=== PATIENT | female | born 1935 | race Caucasian/White ===

== ENCOUNTER 2018-01-09 01:15 | Emergency (ER) | payer MEDICARE, OTHER, MEDICAID ==
[2018-01-09 01:34] VITALS: BP 138/75
--- NOTE | 2018-01-09 02:26 | EDM.PDOC ---
ED HPI GENERAL MEDICAL PROBLEM - General Chief Complaint: General Stated Complaint: knee pain Time Seen by Provider: 01/09/18 01:35 Source of Information: Reports: Patient, EMS, RN History Limitations: Reports: No Limitations - History of Present Illness INITIAL COMMENTS - FREE TEXT/NARRATIVE: Fell out of lift chair at approximately 2300 and was brought to the ER approximately 0115 to be evaluated for left leg pain. She complains of pain to the left knee and ankle. No obvious deformity. She has had previous stroke and is weak on the left side. She denies any other injury or pain. No LOC noted. Onset: Sudden Location: Reports: Lower Extremity, Left Quality: Reports: Throbbing Severity: Moderate Associated Symptoms: Reports: No Other Symptoms Left Ankle Pain Score (Numeric/FACES): 5 - Related Data Allergies Allergy/AdvReac Type Severity Reaction Status Date / Time cephalexin Allergy Cannot Verified 01/09/18 00:47 Remember tramadol Allergy Cannot Verified 01/09/18 00:47 Remember Home Meds: Home Meds Aspirin [Halfprin] 81 mg PO DAILY 08/09/14 [History] Escitalopram [Lexapro] 10 mg PO DAILY 08/09/14 [History] Gabapentin 1 tab PO TID 08/09/14 [History] Hydrochlorothiazide 25 mg PO DAILY 08/09/14 [History] Insulin Detemir [Levemir] 7 units SUBCUT DAILY 08/09/14 [History] LORazepam 1 mg PO BEDTIME PRN 08/09/14 [History] Levothyroxine 75 mcg PO DAILY 08/09/14 [History] Melatonin/Pyridoxine HCl (B6) [Melatonin 5 mg Tablet] 3 mg PO BEDTIME 08/09/14 [ History] Multivit-Min/FA/Lycopene/Lut [Centrum Silver] 1 tab PO DAILY 08/09/14 [History] Polyethylene Glycol 3350 [MiraLAX] 1 gm PO DAILY 08/09/14 [History] Potassium Chloride [Klor-Con 10] 10 meq PO DAILY 08/09/14 [History] Sennosides/Docusate Sodium [Senna-Docusate Sodium] 2 tab PO BEDTIME 08/09/14 [ History] Solifenacin [Vesicare] 5 mg PO DAILY 08/09/14 [History] Verapamil HCl [Verapamil ER] 1 tab PO DAILY 08/09/14 [History] Vilazodone [Viibryd] 1 tab PO DAILY 08/09/14 [History] Cholecalciferol (Vitamin D3) [D3-2000] 2,000 unit PO DAILY 12/15/15 [History] diphenhydrAMINE [Benadryl] 50 mg PO BEDTIME PRN 12/15/15 [History] Clopidogrel [Plavix] 75 mg PO DAILY #30 tablet 12/22/15 [Rx] Lisinopril [Prinivil] 5 mg PO DAILY #30 tablet 12/22/15 [Rx] Past Medical History HEENT History: Reports: Cataract Cardiovascular History: Reports: Hypertension Musculoskeletal History: Reports: Fibromyalgia Neurological History: Reports: CVA, TIA Psychiatric History: Reports: Anxiety, Depression Endocrine/Metabolic History: Reports: Diabetes, Type II, Hypoparathyroidism, Hypothyroidism - Past Surgical History HEENT Surgical History: Reports: Adenoidectomy, Cataract Surgery GI Surgical History: Reports: Appendectomy, Cholecystectomy Female Surgical History: Reports: Hysterectomy Social & Family History - Family History Family Medical History: Noncontributory Cardiac: Reports: CAD, Hypertension Endocrine/Metabolic: Reports: Diabetes, type II - Tobacco Use Smoking Status *Q: Never Smoker - Recreational Drug Use Recreational Drug Use: No - Living Situation & Occupation Living situation: Reports: Occupation: Retired ED ROS GENERAL - Review of Systems Review Of Systems: See Below Constitutional: Reports: No Symptoms HEENT: Reports: No Symptoms Respiratory: Reports: No Symptoms Cardiovascular: Reports: No Symptoms GI/Abdominal: Reports: No Symptoms Musculoskeletal: Reports: Leg Pain Skin: Reports: No Symptoms ED EXAM, GENERAL - Physical Exam Exam: See Below Exam Limited By: No Limitations General Appearance: Alert, Moderate Distress Head: Atraumatic, Normocephalic Neck: Normal Inspection, Supple, Non-Tender Respiratory/Chest: No Respiratory Distress, Lungs Clear, Normal Breath Sounds Cardiovascular: Regular Rate, Rhythm, No Edema GI/Abdominal: Normal Bowel Sounds, Soft, Non-Tender Extremities: No Pedal Edema, Normal Capillary Refill, Other (left leg and ankle are tender with any movement or palpation. NO obvious deformity noted. tender to the proximal tib/fib area and to the ankle when palpated. Able to do ROM at the ankle without increase in pain. Good pulses distally.) Neurological: Alert Skin Exam: Warm, Dry, Intact Course - Vital Signs Last Recorded V/S: Last Vital Signs Temp 98.2 F 01/09/18 01:26 Pulse 81 01/09/18 01:26 Resp 18 01/09/18 01:26 BP 138/75 01/09/18 01:26 Pulse Ox 96 01/09/18 01:26 - Orders/Labs/Meds Orders: Active Orders 24 hr Category Date Time Status Ankle Min 3V Lt [CR] Stat Exams 01/09/18 01:34 Taken Knee 1V or 2V Lt [CR] Stat Exams 01/09/18 00:51 Taken Meds: Medications Discontinued Medications Generic Name Dose Route Start Last Admin Trade Name Esteban PRN Reason Stop Dose Admin Tramadol HCl Confirm 01/09/18 02:55 01/09/18 03:11 Take Home: Tramadol 50 Mg, 4 Tab Pack Administered 01/09/18 02:56 Not Given Dose 1 packet .ROUTE .STK-MED ONE Tramadol HCl 1 packet 01/09/18 02:58 01/09/18 03:11 Take Home: Tramadol 50 Mg, 4 Tab Pack PO 01/09/18 02:59 Not Given ONETIME ONE - Re-Assessments/Exams Free Text/Narrative Re-Assessment/Exam: 01/09/18 0200 One step posterior splint applied from the mid thigh to the toes with the assistance of 2. Wrapped with albert wraps. Good sensation distally and pulse remains intact. She states that it is less painful at this time. Departure - Departure Time of Disposition: 02:27 Disposition: Home, Self-Care 01 Condition: Good Clinical Impression: Fracture, tibia and fibula, proximal Qualifiers: Encounter type: initial encounter Fracture type: closed Laterality: left Qualified Code(s): S82.102A - Unspecified fracture of upper end of left tibia, initial encounter for closed fracture - Discharge Information Instructions: Tibial and Fibular Fracture Referrals: Mu Sanchez MD [Primary Care Provider] - Forms: ED Department Discharge Additional Instructions: Leave splint on until further notice ice to knee and ankle for 20 minutes 2-3 times a day. Pain meds as needed for discomfort Will call with further orders tomorrow. No weight bearing - Problem List & Annotations (1) Fracture, tibia and fibula, proximal SNOMED Code(s): 43181960 Code(s): S82.109A - UNSP FRACTURE OF UPPER END OF UNSP TIBIA, INIT FOR CLOS FX; S82.839A - OTH FRACTURE OF UPPER AND LOWER END OF UNSP FIBULA, INIT Status : Acute Priority: High Qualifiers: Encounter type: initial encounter Fracture type: closed Laterality: left Qualified Code(s): S82.102A - Unspecified fracture of upper end of left tibia , initial encounter for closed fracture; S82.832A - Other fracture of upper and lower end of left fibula, initial encounter for closed fracture - Problem List Review Problem List Initiated/Reviewed/Updated: Yes - My Orders Last 24 Hours: My Active Orders 01/09/18 00:51 Knee 1V or 2V Lt [CR] Stat 01/09/18 01:34 Ankle Min 3V Lt [CR] Stat - Assessment/Plan Last 24 Hours: My Active Orders 01/09/18 00:51 Knee 1V or 2V Lt [CR] Stat 01/09/18 01:34 Ankle Min 3V Lt [CR] Stat
[2018-01-09] MEDS ORDERED: Take Home: traMADol 50 MG, 4 Tab Pack ONE (02:55)
[2018-01-09] MEDS ORDERED: Take Home: traMADol 50 MG, 4 Tab Pack PO ONE (02:58)
== END 2018-01-09 03:05 | disposition home or self-care (01) ==
LOC: CC.ED 01:15
DX: S82.832A Other fracture of upper and lower end of left fibula, initial encounter for closed fracture (principal); S82.102A Unspecified fracture of upper end of left tibia, initial encounter for closed fracture; I10 Essential (primary) hypertension; E11.9 Type 2 diabetes mellitus without complications; Z88.8 Allergy status to other drugs, medicaments and biological substances; Z88.6 Allergy status to analgesic agent; Z79.82 Long term (current) use of aspirin; Z79.899 Other long term (current) drug therapy; Z79.4 Long term (current) use of insulin; W07.XXXA Fall from chair, initial encounter
CPT/HCPCS: 29505; 73560-LT; 73610-LT; 99284